=== PATIENT | male | born 1985 | race Caucasian/White ===

== ENCOUNTER 2019-04-29 12:43 | Inpatient (IN) | payer BC ==
[~2019-04-29 12:43] MED LIST: Iopamidol-370 76% 500 ML 1 ML ONE
--- NOTE | 2019-04-29 13:11 | RAD ---
Exam: Chest one view HISTORY:Pneumonia Comparison: 04/28/2019 FINDINGS: Cardiac silhouette: Normal Aorta: Unremarkable Pulmonary vessels: Normal Costophrenic angles: Clear LUNGS: Worsening opacification in the right lower lobe. Additional interstitial opacities in the left lower lobe. Pneumothorax: None Osseous abnormalities: None IMPRESSION: 1. Worsening right lower lobe infiltrate. Continued surveillance is recommended. 2. Interval development of interstitial opacities in the left lung base.
[2019-04-29 13:18] LABS: Hemoglobin 13.8 g/dL (14.0-18.0); Mean Corpuscular HGB CONC 32.4 g/dL (32.0-36.0); Mean Corpuscular Hemoglobin 26.7 pg (27.0-31.0); Mean Corpuscular Volume 82.4 fL (78.0-98.0); Mean Platelet Volume 8.8 fL (7.4-10.4); Platelet Count 118 thou/uL (130-400); RBC Distribution Width 12.4 % (11.5-14.5); Red Blood Cell (RBC) Count 5.18 mill/uL (4.70-6.10); White Blood Cell (WBC) Count 9.8 thou/uL (4.8-10.8)
[2019-04-29 13:30] LABS: Band 16 % (5-11); Lymphocytes 5 % (21-51); MDiff Complete? YES; Monocytes 8 % (0-10); Neutrophil 71 % (42-75); Platelet Morphology Comment Appears Decreased; RBC Morphology Normal
[2019-04-29 13:31] LABS: ALT (SGPT) 21 U/L (8-55); AST (SGOT) 29 U/L (5-34); Albumin 4.1 g/dL (3.5-5.0); Alkaline Phosphatase 61 U/L (40-110); Anion Gap 15 mmol/L (10-20); BUN (Urea Nitrogen) 10 mg/dL (8.9-20.6); Bilirubin, Total 0.9 mg/dL (0.2-1.2); Calc. Creatinine Clearance 0 mL/min (70-130); Calcium 9.2 mg/dL (7.8-10.44); Carbon Dioxide 23 mmol/L (22-29); Chloride 101 mmol/L (98-107); Estimated GFR-MDRD 58; Globulin 3.6 g/dL (2.4-3.5); Glucose 111 mg/dL (70-105); Potassium 3.9 mmol/L (3.5-5.1); Protein, Total 7.7 g/dL (6.0-8.3); Sodium 135 mmol/L (136-145)
[2019-04-29] MEDS ORDERED: cefTRIAXone\\ROCEPHIN 2 GM VIAL ONE (13:43)
[2019-04-29] MEDS ORDERED: Dexamethasone 10 MG/ML VIAL ONE (13:46)
[2019-04-29] MEDS ORDERED: Azithromycin 500 MG VIAL ONE (14:36)
[2019-04-29] MEDS ORDERED: Acetaminophen 500 MG TAB ONE (15:21)
[2019-04-29] MEDS ORDERED: Acetaminophen 650 MG Suppository PR PRN (16:07)
[2019-04-29] MEDS ORDERED: Acetaminophen/Codeine Oral Solution PO PRN (16:20)
[2019-04-29] MEDS ORDERED: guaiFENesin 200 MG TAB PO PRN (16:26)
[2019-04-29 17:25] VITALS: BMI 26.6
--- NOTE | 2019-04-29 17:54 | CT ---
CTA Angio Chest W WO Con 04/29/2019 4:17 PM Indication: Shortness of breath and chest pain Technique: Multiple CTA images were obtained of the thorax with IV contrast. 3-D rendering: MIP crow nstructed images were created and reviewed. Comparison: Chest radiograph dated April 29, 2019 Findings: Pulmonary arteries: No central or segmental pulmonary embolus is evident. Heart and Aorta: Normal appearing. Mediastinum:There are a few mildly prominent right hilar lymph nodes. There are calcified lymph nodes within the right hilum and mediastinum. Lungs:There is prominent airspace consolidation the right lower lobe. There are patchy opacities with in the right middle lobe laterally. There is subsegmental volume loss in the left lower lobe. Pleural space: Clear. Upper Abdomen: No acute abnormality. Osseous Structures: No acute osseous abnormality. Soft tissues:No abnormality. Other findings:None. Impression: No central or segmental pulmonary embolus. Right lower lobe and right middle lobe pneumonia. Mild suspected reactive lymphadenopathy and right h ilar region. Findings of prior granulomatous disease.
[2019-04-29] MEDS: Sodium Chloride 0.9% 1,000 ML IV SCH (18:13)
--- NOTE | 2019-04-29 19:01 | HP ---
TIME OF ASSESSMENT: 1500. CHIEF COMPLAINT: Fever and cough. PRIMARY CARE PHYSICIAN: Dr. Casanova. HISTORY OF PRESENT ILLNESS: Mr. Larios is a pleasant 33-year-old gentleman, who has had a persistent cough since the holidays and states he has been otherwise feeling generally well until this past week when he began to have generalized aches and chills. He states the cough has become productive for green sputum. He began to feel worse yesterday and had noted difficulty taking in deep breaths due to pleuritic type chest pain. He noticed he was breathing shallow and quick breaths. The patient states he then spiked a temperature of 103 at home, prompting him to go to an urgent care facility, where he was given Rocephin and started on Levaquin. He was discharged on Levaquin and Tessalon. The patient states his cough continued and his fever was difficult to control at home despite alternating ibuprofen and Tylenol. He had sweats and chills, and given the fact that he continued to feel worse, he has opted to seek care again today. In the emergency department, he underwent a repeat chest x-ray which showed a worsening right lower lung pneumonia. The patient was given Rocephin and instead of Levaquin, he has now been started on azithromycin. He had laboratory studies showing a normal white blood count. Sodium was 135, potassium 3.9, BUN 10, creatinine was elevated at 1.41, and GFR was 58. No previous to compare to. Lactic acid normal at 1.4. LFTs unremarkable. He did receive 1 L of normal saline in the emergency department. He was tachypneic in the 30s and tachycardic in the 110s while in the ER. His blood pressure, however, has been normal. He was given Tylenol for low-grade temperature of 99.5. He received 10 mg of Decadron and a DuoNeb treatment while in the ER. The patient is now being admitted for further observation and treatment. Of note, in the ED, he did undergo an EKG that showed normal sinus rhythm with a rate of 96. No ST changes or T-wave abnormalities. 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 PAST SURGICAL HISTORY: None. SOCIAL HISTORY: The patient denies any tobacco use or alcohol consumption. No illicit drug use. ALLERGIES: NO KNOWN DRUG ALLERGIES. CURRENT MEDICATIONS: Recently given a prescription for Levaquin and Tessalon. He is otherwise on no regular medications. PHYSICAL EXAMINATION: GENERAL: The patient appears well developed, well nourished, is in no acute distress. He is resting comfortably in the stretcher. VITAL SIGNS: Temperature 99.1, pulse 93, blood pressure 122/78, O2 saturation 98% on room air, respirations 28. HEENT: Normocephalic and atraumatic. Pupils are equal, round, and reactive to light. Oropharynx is clear. NECK: Supple. LUNGS: Without any wheezes, rales, or rhonchi. Diminished breath sounds at the bilateral bases due to decreased effort as the patient states it causes discomfort to take deep breaths. CARDIAC: Regular rate and rhythm. ABDOMEN: Soft, nontender, nondistended. Normoactive bowel sounds present. No guarding or rigidity. No renal angle tenderness. EXTREMITIES: No lower leg swelling or edema. NEUROLOGIC: Alert and oriented x3. No neuro deficits. SKIN: Warm and dry. INVESTIGATIONS: As mentioned above in the HPI. IMPRESSION AND PLAN: Mr. Larios is a pleasant 33-year-old gentleman, who is being admitted for management of the followin. Worsening right lower lobe pneumonia. We will continue IV antibiotics. We will continue DuoNebs and monitor O2 saturations. At present, he is breathing comfortably, is not tachypneic and with no increased work of breathing. We will give Tylenol with Codeine to help with the cough and alleviate the discomfort. He has been encouraged to take full deep breaths. Sputum culture ordered as well as a respiratory viral panel. We will obtain urinalysis, urine culture, as well as urine Legionella and strep. 2. Acute kidney injury. No previous renal functions to compare to, but the patient is otherwise healthy without any comorbidities. His creatinine is 1.41 and GFR is 58. We will continue IV fluids and monitor renal function. We will hold any nephrotoxic agents. 3. Chest pain. The patient with pleuritic type chest pain and blood tinged sputum. He did have a recent flight on April 17-1/2 to 3 hours long. Given the fact that he is tachycardic and complaining of the pleuritic chest pain, we will rule out PE with a CT angiogram. Again, we will continue IV fluids. 4. Gastrointestinal prophylaxis. Famotidine 10 mg b.i.d. 5. Deep venous thrombosis prophylaxis. The patient is ambulatory. 6. Code status full. Surrogate decision maker is his , Joya Larios. The patient's case was discussed with Dr. Sheets, who agrees with the plan of care as described above. Job ID: [id number]
[2019-04-29 20:12] LABS: Bacteria/HPF None Seen HPF (None Seen); Bilirubin Negative (Negative); Blood, Urine Negative (Negative); Clarity Clear (Clear); Glucose, Urine (Dipstick) 200 mg/dL (Negative); Leukocyte Negative Leu/uL (Negative); Nitrite Negative (Negative); Protein, Urine (Dipstick) Negative (Neg-Trace); RBC/HPF 0-3 HPF (0-3); Squamous Epithelial 0-3 HPF (0-3); Urobilinogen Normal mg/dL (Less than 2); WBC/HPF 0-3 HPF (0-3)
[2019-04-29 20:15] LABS: Urine Culture Reflex No No
[2019-04-29 20:26] LABS: Legionella Urinary Ag Negative (Negative)
[2019-04-29 20:27] LABS: Strep pneumo Urine Ag NEGATIVE (NEGATIVE)
[2019-04-29] MEDS: Famotidine/PF 20 mg/2ml Vial SLOW IVP SCH (21:02)
[2019-04-29] MEDS: Acetaminophen 325 MG TAB PO PRN (21:53)
[2019-04-29] MEDS ORDERED: Ibuprofen 200 MG TAB PO PRN (23:23)
[2019-04-30] MEDS: Acetaminophen 325 MG TAB PO PRN ×3 (03:17→11:43)
[2019-04-30] MEDS: Sodium Chloride 0.9% 1,000 ML IV SCH ×3 (03:17→23:59)
[2019-04-30] MEDS: Famotidine/PF 20 mg/2ml Vial SLOW IVP SCH ×2 (07:13→20:50)
[2019-04-30 10:54] LABS: #Basophils 0.1 thou/uL (0.0-0.2); #Lymphocytes 0.5 thou/uL (1.20-3.40); #Monocytes 0.6 thou/uL (0.11-0.59); #Neutrophils 9.7 thou/uL (1.40-6.50); %Basophils 0.7 % (0.0-1.0); %Eosinophils 0.1 % (0.0-10.0); %Lymphocytes 4.5 % (21.0-51.0); %Monocytes 5.1 % (0.0-10.0); %Neutrophils 89.7 % (42.0-75.0); Hemoglobin 13.3 g/dL (14.0-18.0); Mean Corpuscular HGB CONC 32.9 g/dL (32.0-36.0); Mean Corpuscular Hemoglobin 27.6 pg (27.0-31.0); Mean Corpuscular Volume 84.1 fL (78.0-98.0); Mean Platelet Volume 8.8 fL (7.4-10.4); Platelet Count 154 thou/uL (130-400); RBC Distribution Width 12.8 % (11.5-14.5); Red Blood Cell (RBC) Count 4.82 mill/uL (4.70-6.10); White Blood Cell (WBC) Count 10.8 thou/uL (4.8-10.8)
[2019-04-30 11:22] LABS: Anion Gap 14 mmol/L (10-20); BUN (Urea Nitrogen) 15 mg/dL (8.9-20.6); Calc. Creatinine Clearance 121 mL/min (70-130); Calcium 9.1 mg/dL (7.8-10.44); Carbon Dioxide 20 mmol/L (22-29); Chloride 106 mmol/L (98-107); Estimated GFR-MDRD 65; Glucose 246 mg/dL (70-105); Potassium 3.6 mmol/L (3.5-5.1); Sodium 136 mmol/L (136-145)
[2019-04-30 12:57] LABS: Ref Lab Test Ordered RVP PCR; Reference Lab Name LABCORP
[2019-04-30] MEDS ORDERED: Azithromycin 500 MG in Sodium Chloride 0.9% 250 ML 250 ML IVPB SCH (14:00)
[2019-04-30] MEDS: cefTRIAXone\\ROCEPHIN 2 GM in Sodium Chloride 0.9% 100 ML IVPB SCH (14:06)
--- NOTE | 2019-04-30 16:14 | PDOC.HOSPP ---
- Subjective Encounter Date: 04/30/19 Encounter Time: 09:20 Subjective: Pt seen for followup re; pneumonia. Feels better. - Objective Vital Signs & Weight: Vital Signs (12 hours) Temp Pulse Resp BP Pulse Ox 04/30/19 14:09 92 16 97 04/30/19 11:44 97.9 F 04/30/19 11:14 98.1 F 91 18 123/75 98 04/30/19 07:58 76 16 96 04/30/19 07:51 97.5 F L 75 18 115/73 95 04/30/19 04:45 98.0 F 72 18 109/66 95 Weight Weight 230 lb I&O: 04/29/19 04/30/19 05/01/19 06:59 06:59 06:59 Intake Total 2950 Balance 2950 Result Diagrams: 04/30/19 10:24 04/30/19 10:24 Additional Labs: Labs and MARs reviewed by or Hospitalist ROS - Review of Systems Constitutional: denies: fever, chills, sweats, weakness, malaise Respiratory: reports: cough, sputum. denies: dry, shortness of breath, hemoptysis, SOB with excertion, pleuritic pain, wheezing - Medication Medications: Active Medications Generic Name Dose Route Start Last Admin Trade Name Freq PRN Reason Stop Dose Admin Acetaminophen 650 mg 04/29/19 16:07 04/30/19 11:43 Tylenol PO 650 mg Q4H PRN Administration Headache/Fever/Mild Pain (1-3) Acetaminophen/Codeine Phosphate 5 ml 04/29/19 16:20 04/29/19 22:07 Tylenol/Codeine Elixir PO 5 ml Q4H PRN Administration Cough Albuterol/Ipratropium 3 ml 04/29/19 19:00 04/30/19 14:09 Duoneb NEB 3 ml [id number] LEONARDA Administration Famotidine 20 mg 04/29/19 21:00 04/30/19 07:13 Pepcid SLOW IVP 20 mg Q12HR LEONARDA Administration Sodium Chloride 1,000 mls @ 100 mls/hr 04/29/19 16:30 04/30/19 03:17 Normal Saline 0.9% IV 1,000 mls .Q10H LEONARDA Administration Azithromycin 500 mg/ Sodium 250 mls @ 250 mls/hr 04/30/19 14:00 04/30/19 15: 00 Chloride IVPB 250 mls Q24HR LEONARDA Administration Ceftriaxone Sodium 2 gm/ 100 mls @ 200 mls/hr 04/30/19 13:00 04/30/19 14:06 Sodium Chloride IVPB 100 mls Q24HR LEONARDA Administration Ibuprofen 400 mg 04/29/19 23:23 04/29/19 23:40 Motrin PO 400 mg Q4H PRN Administration Fever/Mild Pain - Exam General Appearance: NAD Eye: anicteric sclera ENT: moist mucosa Neck: supple Heart: RRR Respiratory - other findings: R basal crackles Gastrointestinal: soft, non-tender Extremities: no clubbing Skin: no rashes Psychiatric: normal affect, normal behavior Hosp A/P (1) RLL pneumonia Code(s): J18.9 - PNEUMONIA, UNSPECIFIED ORGANISM Status: Acute (2) Hyponatremia Code(s): E87.1 - HYPO-OSMOLALITY AND HYPONATREMIA Status: Resolved (3) ROYCE (acute kidney injury) Code(s): N17.9 - ACUTE KIDNEY FAILURE, UNSPECIFIED Status: Resolved - Plan continue antibiotics, out of bed/ambulate Continue ceftriaxone and azithromycin. Pt improving clinically.
[2019-05-01] MEDS: Sodium Chloride 0.9% 1,000 ML IV SCH ×2 (01:06→08:47)
[2019-05-01 05:38] LABS: #Lymphocytes 1.2 thou/uL (1.20-3.40); #Monocytes 0.6 thou/uL (0.11-0.59); %Basophils 0.2 % (0.0-1.0); %Eosinophils 0.3 % (0.0-10.0); %Lymphocytes 15.5 % (21.0-51.0); %Monocytes 7.1 % (0.0-10.0); %Neutrophils 76.9 % (42.0-75.0); Hemoglobin 10.9 g/dL (14.0-18.0); Mean Corpuscular HGB CONC 30.6 g/dL (32.0-36.0); Mean Corpuscular Hemoglobin 25.5 pg (27.0-31.0); Mean Corpuscular Volume 83.5 fL (78.0-98.0); Mean Platelet Volume 8.1 fL (7.4-10.4); Platelet Count 153 thou/uL (130-400); RBC Distribution Width 12.8 % (11.5-14.5); Red Blood Cell (RBC) Count 4.26 mill/uL (4.70-6.10); White Blood Cell (WBC) Count 7.8 thou/uL (4.8-10.8)
[2019-05-01 05:53] LABS: Anion Gap 12 mmol/L (10-20); BUN (Urea Nitrogen) 12 mg/dL (8.9-20.6); Calc. Creatinine Clearance 145 mL/min (70-130); Calcium 8.5 mg/dL (7.8-10.44); Carbon Dioxide 25 mmol/L (22-29); Chloride 109 mmol/L (98-107); Estimated GFR-MDRD 79; Glucose 119 mg/dL (70-105); Potassium 4.2 mmol/L (3.5-5.1); Sodium 142 mmol/L (136-145)
[2019-05-01] MEDS: Famotidine/PF 20 mg/2ml Vial SLOW IVP SCH (08:44)
[2019-05-01] MEDS ORDERED: Cefdinir 300 MG CAP PO SCH ×2 (11:30→21:00)
[2019-05-01] MEDS: cefTRIAXone\\ROCEPHIN 2 GM in Sodium Chloride 0.9% 100 ML IVPB SCH (12:37)
[2019-05-01 13:35] VITALS: BP 133/84; TEMP 98.4
--- NOTE | 2019-05-02 05:37 | DIS ---
DATE OF ADMISSION: 04/29/2019 DATE OF DISCHARGE: 05/01/2019 PRIMARY CARE PROVIDER: Henry Casanova MD DISCHARGE DIAGNOSES: 1. Community-acquired pneumonia. 2. Hyponatremia. 3. Acute kidney injury. 4. Thrombocytopenia. CONDITION OF PATIENT ON THE DAY OF DISCHARGE: Stable. I assessed Mr. Larios on the day of discharge. He denies any chest pain or shortness of breath. Vital signs are stable. S1 and S2 are heard, regular. Lungs are clear to auscultation bilaterally. DISCHARGE MEDICATIONS: 1. Benzonatate 200 mg 3 times a day. 2. Omnicef 300 mg 2 times a day for 1 week. 3. Doxycycline 100 mg 2 times a day for 1 week. POST ACUTE CARE FOLLOWUP: With primary care provider in 3 days' time. HOSPITAL COURSE: Mr. Larios is a pleasant 33-year-old gentleman, who was admitted to [facility] on April 29, 2019, for community-acquired pneumonia. Please refer to Ms. Gonzalez's history and physical note dated April 29, 2019, for further details. CT angiogram of the chest did not show any central or segmental pulmonary embolus. He had right lower lobe and right middle lobe pneumonia and mild suspected reactive lymphadenopathy in the right hilar region. He also had findings of prior granulomatous disease. He improved clinically with intravenous antibiotics. He is being stepped down to oral antibiotics and discharged home. At the time of this dictation, final respiratory culture and final blood cultures are pending. He is advised to follow up with primary care provider for the same. On the day of discharge, he has white count 7800, hemoglobin 10.9, platelet count 153,000. Sodium 142, potassium 4.2, and creatinine 1.08. He also had acute kidney injury at the time of admission, with a creatinine of 1.41. It resolved during the hospitalization. DISCHARGE DESTINATION: Home. TIME SPENT: Total amount of time spent coordinating this discharge: 20 minutes. ACTIVITY: Ad stella. DIET: Regular. Many thanks for allowing me to participate in your patient's care. Please feel free to contact me with any questions or concerns. Job ID: [id number]
--- NOTE | 2019-05-03 01:59 | PQF ---
KRISTY PEDERSEN DAVID [id number] CLINICAL DOCUMENTATION CLARIFICATION FORM: POST DISCHARGE Addendum to original discharge summary date: ____ Late entry note date: __ DATE: 05/03/18 ATTN: Vicente Martinez Please exercise your independent, professional judgment in responding to the clarification form. Clinical indicators are provided on the bottom of this form for your review Can you please further clarify the diagnosis based on the clinical indicators below? Please check appropriate box(es): [ x ] Sepsis due to: (Pna, UTI, gangrenous gall bladder, etc.) ____Pneumonia____ [ ] Severe sepsis with acute organ dysfunction of: (Examples: respiratory failure, encephalopathy, acute kidney failure, other) [ ] Localized infection without sepsis [ ] Other diagnosis [ ] Unable to determine In addition, please specify: Present on Admission (POA): [ x ] Yes [ ] No [ ] Unable to determine For continuity of documentation, please document condition throughout progress notes and discharge summary. Thank You. CLINICAL INDICATORS - SIGNS / SYMPTOMS / LABS ED Provide pg.2- vitals signed review. Patient febrile, pulse tachycardic H and P pg.1- Chest x ray which showed a worsening right lung pneumonia H and P pg.1- he was tachypneic in the 30's and tachycardic in the 110's while in ER H and P pg.2- Vital signs : Temp 99.1, pulse 93, BP 122/78, Respiration 28 RISK FACTORS Pneumonia- H and P pg.2 Acute kidney injury- H and P pg.2 TREATMENTS: Chest x ray 04/29 Chest/Thorax CTA 04/29 IV antibiotics- MAR IV fluids-MAR Sputum culture- Microbiology (This form is maintained as a part of the permanent medical record) 2014 [employer]. All Rights Reserved [email or web address] [not provided] MTDD
== END 2019-05-01 13:36 | disposition home or self-care (01) | DRG 871 ==
LOC: ERS 12:43 → OBSVTOIN 16:28 → T4-B 16:28
PROVIDERS: ADMIT Internal Medicine; ATTEND Emergency Medicine
DX: A41.9 Sepsis, unspecified organism (principal); J18.9 Pneumonia, unspecified organism; N17.9 Acute kidney failure, unspecified; E87.1 Hypo-osmolality and hyponatremia; C76.52 Malignant neoplasm of left lower limb; D69.6 Thrombocytopenia, unspecified
CPT/HCPCS: 36415; 71045; 71275; 80048; 80053; 81001; 83605; 85025; 87040; 87070; 87205; 87449; 87899; 93005; 94640; J0456; J0696; J1100; J3490; J7050; J7620; Q9967; S0028

== ENCOUNTER 2019-05-18 07:33 | Outpatient (CLI) | payer BC ==
--- NOTE | 2019-05-18 08:07 | RAD ---
TWO VIEWS OF THE CHEST: COMPARISON: 04/28/2019. HISTORY: Pneumonia followup. FINDINGS: Two vies of the chest show a normal-size cardiomediastinal silhouette. The previously seen opacity i n the right lower lobe has resolved. There is no evidence of consolidation, mass, or pleural effusio n. IMPRESSION: No evidence of acute cardiopulmonary disease. POS: [facility]
== END 2019-05-18 07:34 | disposition home or self-care (01) ==
LOC: SCSRAD 07:33
PROVIDERS: ATTEND Family Medicine
DX: J18.9 Pneumonia, unspecified organism (principal)
CPT/HCPCS: 71046

== ENCOUNTER 2019-06-25 12:47 | Outpatient (CLI) | payer BC ==
--- NOTE | 2019-06-25 13:22 | RAD ---
XR Chest Pa Lat @ POB History: Dyspnea Comparison: Radiograph May 18, 2019 Findings: Lungs are clear. No pneumothorax or effusion. Cardiac silhouette and mediastinal contours a re within normal limits. No acute osseous abnormality. Impression: No acute intrathoracic abnormality.
== END 2019-06-25 12:48 | disposition home or self-care (01) ==
LOC: RAD 12:47
PROVIDERS: ATTEND Internal Medicine
DX: R06.00 Dyspnea, unspecified (principal)
CPT/HCPCS: 71046

== ENCOUNTER 2020-05-28 07:33 | Outpatient (CLI) | payer BC ==
--- NOTE | 2020-05-28 10:27 | MRI ---
MRI OF THE RIGHT KNEE WITHOUT CONTRAST: INDICATION: A 35-year-old male with a history of osteochondral defect of the lower extremity. COMPARISON: Right knee radiograph dated 05/22/2020 from [facility]. FINDINGS: Corresponding to the osteochondral defect seen involving the lateral aspect of the medial femoral con dyle is a 2.5 x 15 mm osteochondral lesion. There is some fragmentation of the osteochondral fragmen t. There is undermining of the fragment by T2 hyperintensity indicative of instability. The ACL, PC L, MCL, and LCLC are intact. There is marrow edema surrounding the osteochondral defect, likely reac tive in nature. There is a near full-thickness articular cartilage fissure involving the medial mata llar facet measuring 2.5 mm on image 14 of series 4. There is mild medial synovial PLICA. Articula r cartilage of the lateral femorotibial compartment is preserved. The medial and lateral [place] ear intact. IMPRESSION: 1. Osteochondral defect of the mediofemoral condyle with T2 hyperintense undermining the defect most consistent with an unstable osteochondral lesion. No displaced osteochondral body is evident within the joint space. 2. Near full-thickness articular cartilage fissure involving the medial patellar facet. POS: [facility]
== END 2020-05-28 07:34 | disposition home or self-care (01) ==
LOC: BICMRI 07:33
PROVIDERS: ATTEND Orthopaedic Surgery
DX: M95.8 Other specified acquired deformities of musculoskeletal system (principal); M22.2X1 Patellofemoral disorders, right knee

== ENCOUNTER 2020-07-02 16:21 | Outpatient (CLI) | payer BC ==
[2020-07-03 00:38] LABS: SARS-CoV-2 PCR by NAA Not Detected (NotDetected)
== END 2020-07-02 16:22 | disposition home or self-care (01) ==
LOC: LABBT 16:21
PROVIDERS: ATTEND Orthopaedic Surgery
DX: M95.8 Other specified acquired deformities of musculoskeletal system (principal); Z20.822 Contact with and (suspected) exposure to COVID-19
CPT/HCPCS: 87635; U0003; U0005

== ENCOUNTER 2020-07-07 09:31 | Observation (INO) | payer BC ==
[2020-07-03 12:30] VITALS: BMI 23.4
[2020-07-07] MEDS ORDERED: Fentanyl 100 MCG/2 ML VIAL ONE ×5 (10:44→15:03)
[2020-07-07] MEDS ORDERED: Midazolam HCl 2 mg/2 ml Vial ONE ×2 (10:44→12:21)
[2020-07-07] MEDS ORDERED: HYDROcodone/Acetaminophen 10/325 mg Tablet PO PRN ×2 (11:30)
[2020-07-07] MEDS ORDERED: Ropivacaine 0.2% 550 ML 550 ML NERVE BLCK SCH (11:30)
[2020-07-07] MEDS ORDERED: Zolpidem Tartrate 5 MG TAB PO PRN (11:30)
[2020-07-07] MEDS ORDERED: Ondansetron PF 4 MG/2 ML Vial IVP PRN (11:30)
[2020-07-07] MEDS ORDERED: Promethazine HCl 25 MG/ML VIAL IM PRN ×2 (11:30→13:30)
[2020-07-07] MEDS ORDERED: traMADol HCl 50 MG TAB PO PRN ×2 (11:30)
[2020-07-07] MEDS ORDERED: Acetaminophen 325 MG TAB PO PRN (11:30)
[2020-07-07] MEDS ORDERED: Fentanyl 100 MCG/2 ML VIAL IV PRN (11:31)
[2020-07-07] MEDS ORDERED: ePHEDrine 50 MG/ML VIAL ONE (12:10)
[2020-07-07] MEDS ORDERED: Ropivacaine 0.5% HCl/PF (150 MG/30 ML VIAL) ONE (12:10)
[2020-07-07] MEDS ORDERED: PROPOFOL 200 MG/20 ML VIAL ONE (12:10)
[2020-07-07] MEDS ORDERED: Dexamethasone 20 MG/5 ML VIAL ONE (12:10)
[2020-07-07] MEDS ORDERED: Morphine 2 MG/ML VIAL SLOW IVP PRN (12:11)
[2020-07-07] MEDS ORDERED: Bisacodyl 10 MG SUPP PR PRN (12:11)
[2020-07-07] MEDS ORDERED: diphenhydrAMINE 50 MG CAP PO PRN (12:11)
[2020-07-07] MEDS ORDERED: HYDROcodone/Acetaminophen 7.5/325 mg Tablet PO PRN ×2 (12:11)
[2020-07-07] MEDS ORDERED: Methocarbamol 500 MG TAB PO PRN (12:11)
[2020-07-07] MEDS ORDERED: Milk Of Magnesia 30 ML UDCUP PO PRN (12:11)
[2020-07-07] MEDS ORDERED: Vancomycin 1.5 GRAM/300 ML BAG ONE (12:19)
[2020-07-07] MEDS ORDERED: HYDROmorphone 2 MG/ML VIAL SLOW IVP PRN (13:30)
[2020-07-07] MEDS ORDERED: Promethazine HCl 25 MG/ML VIAL SLOW IVP PRN (13:30)
[2020-07-07] MEDS ORDERED: Ondansetron HCl/PF 4 MG/2 ML Vial IVP PRN (13:30)
[2020-07-07] MEDS: Dextrose 5 %-0.45 % NaCl 1,000 ML IV SCH ×2 (16:20→21:15)
[2020-07-07] MEDS: Ketorolac Tromethamine 30 MG/ML VIAL IVP SCH ×3 (16:20→23:11)
[2020-07-07] MEDS: CEFAZOLIN 2 GM in Premix Bag 1 BAG IVPB SCH (21:15)
[2020-07-07] MEDS: Famotidine 20 MG TAB PO SCH (21:15)
[2020-07-08] MEDS: CEFAZOLIN 2 GM in Premix Bag 1 BAG IVPB SCH (04:57)
[2020-07-08] MEDS: Ketorolac Tromethamine 30 MG/ML VIAL IVP SCH (04:57)
[2020-07-08] MEDS: Famotidine 20 MG TAB PO SCH (08:42)
[2020-07-08] MEDS: Dextrose 5 %-0.45 % NaCl 1,000 ML IV SCH (08:46)
[2020-07-08] MEDS ORDERED: FLU VACC QS2020-21(6MOS UP)/PF 60 MCG/0.5 ML SYRINGE IM ONE (09:00)
[2020-07-08 11:31] VITALS: BP 141/71; TEMP 98.1
== END 2020-07-08 11:50 | disposition home or self-care (01) ==
LOC: SDC 09:31 → SURG B 12:17
PROVIDERS: ADMIT Orthopaedic Surgery; ATTEND Orthopaedic Surgery
PROC: 0SBC4ZZ Excision of Right Knee Joint, Percutaneous Endoscopic Approach (ICD-10-PCS; principal; 2020-07-08)
PROC: 0SUC0KZ Supplement Right Knee Joint with Nonautologous Tissue Substitute, Open Approach (ICD-10-PCS; 2020-07-08)
PROC: 3E0T3BZ Introduction of Anesthetic Agent into Peripheral Nerves and Plexi, Percutaneous Approach (ICD-10-PCS; 2020-07-08)
PROC: 3E0T3BZ Introduction of Anesthetic Agent into Peripheral Nerves and Plexi, Percutaneous Approach (ICD-10-PCS; 2020-07-08)
DX: M21.861 Other specified acquired deformities of right lower leg (principal); G89.18 Other acute postprocedural pain; M10.9 Gout, unspecified; Z86.16 Personal history of COVID-19; Z79.899 Other long term (current) drug therapy
CPT/HCPCS: 96365; 96375; 96376; A4306; C1713; G0378; J0690; J1100; J1885; J2250; J2704; J2795; J3010; J3370; J3490